=== PATIENT | male | born 1970 | race Caucasian/White ===

== ENCOUNTER → 2018-10-20 | Outpatient (CLI) | payer BC ==
[2015-04-11 11:41] VITALS: BP 144/78
[~2018-10-20] MED LIST: ALPR0.5T PO; ASPI-630 PO; ATOR40TA PO; BACL10TA PO; CELE200C PO; HYDR-2769 PO; IOHEXOL 240 MG/ML 50ML VIAL. ONE; IOHEXOL 240 MG/ML 50ML VIAL. PO ONE; IOHEXOL 300 MG/ML 75 ML VIAL. IV ONE; LOSA50TA86 PO; MULT-245 PO; OMEG1CAP38 PO; SERT50TA PO
[2018-10-20 12:36] LABS: BASO % 1 % (0-3); EOS # 0.2 x10^3/uL (0.0-0.7); EOS % 3 % (0-3); HEMATOCRIT 42.2 % (39.0-53.0); HEMOGLOBIN 14.8 g/dL (13.0-17.5); LYMPH # 1.4 x10^3/uL (1.0-4.8); LYMPH % 23 % (24-48); MEAN CORPUSCULAR HEMOGLOBIN 31 pg (25-35); MEAN CORPUSCULAR HGB CONC 35 g/dL (31-37); MEAN CORPUSCULAR VOLUME 87 fL (79-100); MONO # 0.5 x10^3/uL (0.0-1.1); MONO % 8 % (0-9); NEUT # 4.2 x10^3uL (1.8-7.7); NEUT % 66 % (31-73); PLATELET COUNT 129 x10^3/uL (140-400); RED BLOOD COUNT 4.86 x10^6/uL (4.30-5.70); RED CELL DISTRIBUTION WIDTH 14.5 % (11.5-14.5); WHITE BLOOD COUNT 6.3 x10^3/uL (4.0-11.0)
[2018-10-20 12:40] LABS: ALBUMIN 4.1 g/dL (3.4-5.0); ALBUMIN/GLOBULIN RATIO 1.3 (1.0-1.7); CALCIUM 9.2 mg/dL (8.5-10.1); CREATININE 0.9 mg/dL (0.7-1.3); GFR 90.8; POTASSIUM 3.8 mmol/L (3.5-5.1); TOTAL BILIRUBIN 0.8 mg/dL (0.2-1.0); TOTAL PROTEIN 7.2 g/dL (6.4-8.2)
--- NOTE | 2018-10-20 13:32 | RAD ---
Examination: CT of the abdomen pelvis with oral and IV contrast HISTORY: History of rectal bleeding for 3 months COMPARISON: None available Technique: Axial CT images of the abdomen pelvis were performed with oral and IV contrast. Coronal and sagittal reformats are performed. Exposure: One or more of the following individualized dose reduction techniques were utilized for this examination: 1. Automated exposure control 2. Adjustment of the mA and/or kV according to patient size 3. Use of iterative reconstruction technique FINDINGS: There is a tiny 4 mm nodule identified in the left lower lobe of the lung. No evidence of free air identified in the abdomen. The visualized liver, spleen, adrenals grossly appears unremarkable. The gallbladder is mildly distended. The stomach is mildly distended. The visualized pancreas grossly appears unremarkable. The gallbladder is minimally distended. Small bowel is nondilated. The appendix is normal. Feces and gas noted in the colon. There is mild thickened appearance of the wall of the sigmoid colon with minimal surrounding fat stranding. Urinary bladder is minimally distended. There is moderate thickened appearance of the urinary bladder wall. Surgical changes identified in the right kidney. There is a 1.1 cm cystic structure identified in the left kidney. Mild aortic atherosclerosis. Posterior lumbar fusion hardware identified at L3-L4 vertebral levels. Bilateral pedicle screws. Mild anterolisthesis of L3 on L4 measuring 1 mm. Mild prominent bilateral inguinal lymph nodes. IMPRESSION: 1. Mild thickened appearance of the sigmoid colon with minimal surrounding fat stranding nondistention or mild colitis however underlying mucosal pathology such as neoplasm is not completely excluded. Colonoscopy evaluation can be considered. 2. Surgical changes identified in the right kidney. 3. Moderate thickened appearance the urinary bladder wall could be cystitis or due to underlying mucosal pathology. Cystoscopic evaluation can be considered. 4. 4 mm solid nodule identified in the left lower lobe of the lung. Recommend follow-up per Fleischner Society guidelines with follow-up CT in 6-12 months. Electronically signed by: Jordan Olivares MD (10/20/2018 1:29 PM) [place] [id number]
[2018-10-21 02:08] LABS: TESTOSTERONE TOTAL 40 ng/dL (264-916)
== END | disposition home or self-care (01) ==
LOC: CT 11:43
PROVIDERS: ATTEND Family Medicine
DX: K31.89 Other diseases of stomach and duodenum (principal); K82.8 Other specified diseases of gallbladder; N32.89 Other specified disorders of bladder; I70.0 Atherosclerosis of aorta; E29.1 Testicular hypofunction; K92.1 Melena; R91.1 Solitary pulmonary nodule; I10 Essential (primary) hypertension; Z79.01 Long term (current) use of anticoagulants
CPT/HCPCS: 36415; 74177; 80053; 84153; 84403; 85025; Q9967; G0103

== ENCOUNTER → 2018-10-26 | Outpatient (CLI) | payer BC ==
[2015-04-11 11:41] VITALS: BP 144/78
[2018-10-26 09:48] LABS: ALBUMIN 3.9 g/dL (3.4-5.0); ALBUMIN/GLOBULIN RATIO 1.3 (1.0-1.7); BASO # 0.1 x10^3/uL (0.0-0.2); BASO % 1 % (0-3); EOS # 0.2 x10^3/uL (0.0-0.7); EOS % 2 % (0-3); GFR 80.4; HEMATOCRIT 43.7 % (39.0-53.0); HEMOGLOBIN 15.2 g/dL (13.0-17.5); LYMPH # 1.2 x10^3/uL (1.0-4.8); LYMPH % 17 % (24-48); MEAN CORPUSCULAR HEMOGLOBIN 31 pg (25-35); MEAN CORPUSCULAR HGB CONC 35 g/dL (31-37); MEAN CORPUSCULAR VOLUME 88 fL (79-100); MONO # 0.3 x10^3/uL (0.0-1.1); MONO % 4 % (0-9); NEUT # 5.6 x10^3uL (1.8-7.7); NEUT % 76 % (31-73); PLATELET COUNT 137 x10^3/uL (140-400); POTASSIUM 3.7 mmol/L (3.5-5.1); RED BLOOD COUNT 4.98 x10^6/uL (4.30-5.70); RED CELL DISTRIBUTION WIDTH 14.7 % (11.5-14.5); TOTAL BILIRUBIN 0.6 mg/dL (0.2-1.0); WHITE BLOOD COUNT 7.3 x10^3/uL (4.0-11.0)
--- NOTE | 2018-10-26 10:56 | RAD ---
Examination: CT ABD PELV W/ORAL IV CONTRAST History: Pain, colitis, partial right nephrectomy for renal cell carcinoma Comparison/Correlation: 10/20/2018 CT abdomen and pelvis with oral contrast Findings: Axial images of the abdomen and pelvis were obtained following IV and oral contrast. Sagittal and coronal reformatted images were provided. Visualized lung bases are clear other than a punctate nodule at the left lung base which is stable compared to the prior exam. Liver, spleen, pancreas, adrenal glands, and left kidney are normal. Right renal superior pole suture material is evident. No mass identified involving the right kidney. Right extrarenal pelvis noted. Appendix is normal. Moderate quantity of stool in the colon noted. No extraluminal gas. No enlarged abdominal or pelvic lymph nodes. No inflammatory changes involving bowel identified. Sigmoid colon in particular is unremarkable. Urinary bladder is unremarkable. The graft abdominal wall mesh material is noted at the pelvic level. Prostate gland is enlarged measuring 4.7 cm diameter. Postoperative lumbar spine fusion noted at L3-4 with rods and screws present. Anterolisthesis of L3 in relation to L4 is less than grade 1 extent. Impression: No inflammatory process involving bowel. No obstruction. Partial right nephrectomy is evident and unremarkable. PQRS Compliance Statement: One or more of the following individualized dose reduction techniques were utilized for this examination: 1. Automated exposure control 2. Adjustment of the mA and/or kV according to patient size 3. Use of iterative reconstruction technique Electronically signed by: Rodney Cordero MD (10/26/2018 10:53 AM) [id number]
== END | disposition home or self-care (01) ==
LOC: CT 09:02
PROVIDERS: ATTEND Family Medicine
DX: K51.511 Left sided colitis with rectal bleeding (principal); M43.26 Fusion of spine, lumbar region; M43.16 Spondylolisthesis, lumbar region; N40.0 Benign prostatic hyperplasia without lower urinary tract symptoms; I10 Essential (primary) hypertension; R91.1 Solitary pulmonary nodule; Z98.1 Arthrodesis status; Z85.528 Personal history of other malignant neoplasm of kidney
CPT/HCPCS: 36415; 74177; 80053; 85025; Q9966; Q9967

== ENCOUNTER → 2021-03-12 | Outpatient (CLI) | payer BC ==
[2015-04-11 11:41] VITALS: BP 144/78
[~2021-03-12] MED LIST changes: -IOHEXOL 240 MG/ML 50ML VIAL. ONE; -IOHEXOL 240 MG/ML 50ML VIAL. PO ONE; -IOHEXOL 300 MG/ML 75 ML VIAL. IV ONE
--- NOTE | 2021-03-13 13:39 | CARD ---
MR#: [id number] Date of Study: 03/12/2021 Ordering Physician: LONI HURTADO, Referring Physician: LONI HURTADO, Tech: Daniel Cleaning [facility] APPROVED REPORT EXAM: Two-dimensional and M-mode echocardiogram with Doppler and color Doppler. Other Information Quality : FairHR: 71bpm Rhythm : NSRTechnically limited study due to body habitus. INDICATION Hypertension/HCVD RISK FACTORS Hypertension Obesity Family History 2D DIMENSIONS Left Atrium(2D)4.7 (1.6-4.0cm)IVSd1.1 (0.7-1.1cm) Aortic Root(2D)3.4 (2.0-3.7cm)LVDd5.2 (3.9-5.9cm) PWd1.1 (0.7-1.1cm)LVDs2.8 (2.5-4.0cm) FS (%) 45.9 %SV101.7 ml Aortic Valve AoV Peak Joni.149.6cm/sAoV VTI30.1cm AO Peak GR.9.0mmHgLVOT Peak Joni.123.6cm/s LVOT VTI 24.11cmAO Mean GR.5mmHg Mitral Valve MV E Okqwfbbl360.8cm/sMV E Peak Gr.8mmHg MV DECEL [id number] A Qifsarfm56.5cm/s MV E Mean Gr.2mmHgE/A Ratio1.5 Pulmonary Valve PV Peak Cyqclnyg772.6cm/sPV Peak Grad.6mmHg Tricuspid Valve TR P. Yutdvydu759hq/sTR Peak Gr.24mmHg Pulmonary Vein S1 Nqkawwue90.4cm/sD2 Ckuibrei97.1cm/s LEFT VENTRICLE The left ventricle is normal size. There is borderline concentric left ventricular hypertrophy. The l eft ventricular systolic function is normal and the ejection fraction is within normal range. LV ejec tion fraction of 55-60%. There is normal LV segmental wall motion. The left ventricular diastolic fun ction and filling is normal for age. No left ventricle thrombus noted on this study. There is no vent ricular septal defect visualized. There is no left ventricular aneurysm. There is no mass noted in th e left ventricle. RIGHT VENTRICLE The right ventricle is normal size. There is normal right ventricular wall thickness. The right ventr icular systolic function is normal. ATRIA The left atrium is mildly dilated. The right atrium size is normal. The interatrial septum is intact with no evidence for an atrial septal defect or patent foramen ovale as noted on 2-D or Doppler imagi ng. AORTIC VALVE The aortic valve is normal in structure and function. Doppler and Color Flow revealed no significant aortic regurgitation. There is no significant aortic valvular stenosis. There is no aortic valvular v egetation. MITRAL VALVE The mitral valve is normal in structure and function. There is no evidence of mitral valve prolapse. There is no mitral valve stenosis. Doppler and Color Flow revealed trace mitral valve regurgitation. TRICUSPID VALVE The tricuspid valve is normal in structure and function. Doppler and Color Flow revealed trace tricus pid regurgitation. The PA pressure was estimated at 28 mmHg. There is no tricuspid valve prolapse or vegetation. There is no tricuspid valve stenosis. PULMONIC VALVE The pulmonic valve is not well seen. Doppler and Color Flow revealed no pulmonic valvular regurgitati on. There is no pulmonic valvular stenosis. GREAT VESSELS The aortic root is normal in size. The ascending aorta is normal in size. The IVC is normal in size a nd collapses >50% with inspiration. PERICARDIAL EFFUSION There is no pleural effusion. There is no evidence of significant pericardial effusion. Critical Notification Critical Value: No <Conclusion> The left ventricle is normal size. The left ventricular systolic function is normal and the ejection fraction is within normal range. LV ejection fraction of 55-60%. There is normal LV segmental wall motion. There is borderline concentric left ventricular hypertrophy. Doppler and Color Flow revealed no significant aortic regurgitation. There is no significant aortic valvular stenosis. Doppler and Color Flow revealed trace mitral valve regurgitation. Doppler and Color Flow revealed trace tricuspid regurgitation. The PA pressure was estimated at 28 mmHg. Signed by : Riley Beavers MD Electronically Approved : 03/13/2021 13:38:42
== END ==
LOC: ECHO 08:03
PROVIDERS: ATTEND Family Medicine
DX: I10 Essential (primary) hypertension (principal)
CPT/HCPCS: 93306